=== PATIENT | female | born 1950 | race Caucasian/White ===

== ENCOUNTER 2018-09-21 10:19 | Outpatient (CLI) | payer MEDICARE ==
--- NOTE | 2018-09-21 10:40 | RAD ---
EXAM: Chest 2 views: HISTORY: Dyspnea COMPARISON: None. FINDINGS: There is a normal-sized cardiomediastinal silhouette. There is no evidence of consolidation, mass, or pleural effusion. Degenerative changes are seen in the spine. IMPRESSION: No evidence of acute cardiopulmonary disease
== END 2018-09-21 10:20 | disposition home or self-care (01) ==
LOC: RAD 10:19
PROVIDERS: ATTEND Internal Medicine Critical Care Medicine
DX: R06.00 Dyspnea, unspecified (principal)
CPT/HCPCS: 71046

== ENCOUNTER 2019-08-01 12:51 | Outpatient (CLI) | payer MEDICARE ==
--- NOTE | 2019-08-01 13:56 | MMO ---
Bilateral MAMMO Bilat Diag [facility]. CLINICAL HISTORY: Patient is 68 years old and is seen for diagnostic exam,lump or thickening in the upper-outer region of the left breast and pain in the upper-outer region of the left breast. The patient has the following family history of breast cancer: maternal aunt, at age 48, malignant (generic). The patient has no personal history of cancer. VIEWS: The views performed were: bilateral craniocaudal with tomosynthesis; bilateral mediolateral oblique with tomosynthesis; and bilateral mediolateral with tomosynthesis. FILMS COMPARED: The present examination has been compared to prior imaging studies performed at [facility] on 05/22/2015, 05/29/2016, 06/23/2017 and 06/24/2018. This study has been interpreted with the assistance of computer-aided detection. MAMMOGRAM FINDINGS: The breasts are almost entirely fat. Ultrasound of the palpable finding at 1:30 left breast shows no abnormality. There are no suspicious masses, suspicious calcifications, or new areas of architectural distortion. IMPRESSION: THERE IS NO MAMMOGRAPHIC EVIDENCE OF MALIGNANCY. A ROUTINE FOLLOW-UP MAMMOGRAM IN 1 YEAR IS RECOMMENDED. THE RESULTS OF THIS EXAM WERE SENT TO THE PATIENT. ACR BI-RADS Category 2 - Benign finding MAMMOGRAPHY NOTE: 1. A negative mammogram report should not delay a biopsy if a dominant of clinically suspicious mass is present. 2. Approximately 10% to 15% of breast cancers are not detected by mammography. 3. Adenosis and dense breasts may obscure an underlying neoplasm. Reported by: BERTRAND AGUDELO MD Electonically Signed: [id number]
--- NOTE | 2019-08-01 16:46 | ULT ---
LIMITED LEFT BREAST ULTRASOUND: History: 68-year-old female with palpable abnormality between the 1-2 o'clock position of the left br east. FINDINGS: Correlation is made with the mammogram of the same date that showed no abnormality. Sonographic evaluation in the region of the palpable concern at the 1:30 position of the left breast 6 cm from the nipple demonstrates no abnormality. IMPRESSION: BIRADS category 2 - benign findings.
== END 2019-08-01 12:52 | disposition home or self-care (01) ==
LOC: BICMAMMO 12:51
PROVIDERS: ATTEND Obstetrics & Gynecology
DX: N63.20 Unspecified lump in the left breast, unspecified quadrant (principal)
CPT/HCPCS: 76642; 77066; G0279